=== PATIENT | male | born 1965 | race Two or more races ===

== ENCOUNTER → 2023-10-16 | Day surgery (SDC) | payer MEDICAID ==
[2023-10-12 10:43] LABS: Basophils # (auto) 0.1 10 ^3/uL (0-0.2); Basophils % (auto) 0.9 % (0.0-2.0); Eosinophils # (auto) 0.4 10 ^3/uL (0-0.8); Eosinophils % (auto) 4.6 % (0.0-7.0); Lymphocytes # (auto) 2.7 10 ^3/uL (0.4-5.4); Lymphocytes % (auto) 35.4 % (10.0-50.0); Mean Corpuscular Hemoglobin 28.7 pg (28.0-32.0); Mean Corpuscular Volume 84.4 fL (80.0-100.0); Monocytes # (auto) 0.7 10 ^3/uL (0-1.3); Monocytes % (auto) 8.8 % (0.0-12.0); Neutrophils # (auto) 3.9 10 ^3/uL (1.6-8.6); Neutrophils % (auto) 50.3 % (37.0-80.0); Red Blood Cells 5.22 10^6/uL (4.5-5.90); Red Cell Distribution Width 15.1 % (11.8-14.3); White Blood Cell 7.7 10^3/uL (4.4-10.8)
[2023-10-12 11:40] LABS: Alanine Aminotransferase 29 U/L (7-40); Albumin 4.2 g/dL (3.2-4.8); Alkaline Phosphatase 49 U/L (46-116); Anion Gap 6 (5-15); Aspartate Aminotransferase 26 U/L (13-40); BUN/Creatinine Ratio 16.1 (10.0-20.0); Bilirubin, Total 0.7 mg/dL (0.2-1.0); Blood Urea Nitrogen 15 mg/dL (9-23); Calcium 9.7 mg/dL (8.7-10.4); Carbon Dioxide 25 mmol/L (20-30); Chloride 106 mmol/L (98-107); Glucose 95 mg/dL (74-106); Sodium 137 mmol/L (136-145); Total Protein 7.1 g/dL (5.7-8.2)
[2023-10-12 13:19] LABS: INR 1.02 (0.9-1.15); Partial Thromboplastin Time 26.8 SEC (24.5-34.5); Prothrombin Time 10.8 sec (9.3-11.8)
[~2023-10-16] VITALS: Ht 182.9 cm; Wt 99.8 kg
[~2023-10-16] MED LIST: SODIUM CHLORIDE LOCK 10 ML ONE
[2023-10-16 11:33] VITALS: PULSE 50; RESP 20; O2SAT 95
[2023-10-16] MEDS: fentaNYL CITRATE 100 MCG/2 ML VL ONE (11:38)
[2023-10-16] MEDS: diphenhdrAMINE HCL 50 MG/1 ML VL ONE (11:38)
[2023-10-16] MEDS: MIDAZOLAM HCL 5 MG/ML-1ML VIAL ONE (11:38)
[2023-10-16 12:07] VITALS: PULSE 51; RESP 14; TEMP 98.7; O2SAT 98
[2023-10-16 12:35] VITALS: BP 107/69; PULSE 50; RESP 12; O2SAT 100
== END | disposition home or self-care (01) ==
LOC: GI 09:19
PROVIDERS: ATTEND Internal Medicine Gastroenterology
DX: Z12.11 Encounter for screening for malignant neoplasm of colon (principal); K62.1 Rectal polyp; K64.8 Other hemorrhoids; K62.89 Other specified diseases of anus and rectum; K21.9 Gastro-esophageal reflux disease without esophagitis; Z79.899 Other long term (current) drug therapy; Z98.890 Other specified postprocedural states
CPT/HCPCS: 36415; 45380; 45385; 80053; 85025; 85610; 85730; 88305; J1200; J2250; J3010; J7030; 99152

== ENCOUNTER 2024-02-06 12:03 | Emergency (ER) | payer MEDICAID ==
[~2024-02-06] VITALS: Ht 182.9 cm; Wt 99.4 kg
[2024-02-06 12:14] VITALS: TEMP 98.4
[2024-02-06 12:19] VITALS: BP 149/81; PULSE 57; RESP 18; O2SAT 99
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
[2024-02-06] MEDS: ACETAMINOPHEN 500 MG TAB PO ONE (12:56)
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
[2024-02-06] MEDS ORDERED: BACL10TA PO (13:06)
[2024-02-06] MEDS ORDERED: IBUP-1456 PO (13:06)
== END 2024-02-06 13:20 | disposition home or self-care (01) ==
LOC: ER 12:04
DX: S39.012A Strain of muscle, fascia and tendon of lower back, initial encounter (principal); V43.52XA Car driver injured in collision with other type car in traffic accident, initial encounter; Y93.I9 Activity, other involving external motion; Y92.89 Other specified places as the place of occurrence of the external cause; Y99.8 Other external cause status
CPT/HCPCS: 72100